=== PATIENT | male | born 1945 | race African-American/Black ===

== ENCOUNTER → 2018-12-10 | Outpatient (CLI) | payer MEDICARE, OTHER ==
[~2018-12-10] MED LIST: AMBIEN 10MG10 MG PO; ASPIRIN 32325 MG/TAB PO; ASPIRIN 81M81 MG/TA2 PO; EFFEXOR XR75 MG/CAP PO; GLUCOPHAGE1000 MG PO; K-DUR 2020 MEQ PO; LANTUS100 U/ML SC; LASIX 40MG TABL40 MG PO; LOPRESSOR100 MG PO; MINIPRESS 5M5 MG/CAP PO; MULTIPLE VITAMI1 CAP PO; NORVASC 10MG10 MG PO; NORVASC 5MG5 MG/TAB PO; NOVOLOG 100U100 U/M1 SC; PLAVIX 75MG TAB75 MG PO; PRAVACHOL 40MG40 MG PO; PROSCAR 5MG5 MG PO; VIAGRA100 MG; ZESTRIL40 MG PO
== END ==
LOC: COL.RAD 08:47
DX: K63.89 Other specified diseases of intestine (principal); K80.20 Calculus of gallbladder without cholecystitis without obstruction; D64.9 Anemia, unspecified; R19.5 Other fecal abnormalities

== ENCOUNTER 2021-02-13 14:25 | Emergency (ER) | payer OTHER ==
[~2021-02-13] VITALS: Ht 190.5 cm; Wt 141.4 kg
[2021-02-13 14:35] VITALS: TEMP 98.4
[2021-02-13 15:22] LABS: ALBUMIN 3.4 gm/dL (3.5-5.0); BILIRUBIN,TOTAL 0.2 mg/dL (0.0-1.0); C-REACTIVE PROTEIN 3.1 mg/dL (0.0-0.9); CALCIUM 8.9 mg/dL (8.4-10.2); CREATININE, serum 1.89 (0.66-1.25); TOTAL PROTEIN 7.2 gm/dL (6.4-8.2)
[2021-02-13 15:28] LABS: BASO # 0.1 (0.0-0.2); BASO % 0.6 % (0.0-2.0); EOS # 0.2 (0.0-0.7); EOS % 1.8 % (0-4.0); GRAN # 8.2 (1.4-6.5); GRAN % 74.9 % (42.2-75.2); LYMPH # 1.7 (1.2-3.4); LYMPH % 15.4 % (20.0-51.0); MEAN CELL VOLUME 79 fl (80.0-100.0); MEAN CORPUSCULAR HGB CONC 32 g/dl (33.0-37.0); MEAN PLATELET VOLUME 11.6 fl (7.4-10.4); MONO # 0.8 (0.1-0.6); MONO % 6.9 % (1.7-9.3); PLATELET COUNT 250 K/mm3 (130-400); RED BLOOD COUNT 3.82 M/mm3 (4.20-5.60)
[2021-02-13 15:31] LABS: HEMATOCRIT 30.2 % (42.0-52.0); HEMOGLOBIN 9.6 g/dl (13.5-18.0); MEAN CORPUSCULAR HEMOGLOBIN 25 pg (27.0-31.0)
[2021-02-13] MEDS ORDERED: CEPHALEXIN500 M1 PO (16:10)
[2021-02-13 16:28] VITALS: BP 134/65; PULSE 73
== END 2021-02-13 16:23 | disposition home or self-care (01) ==
LOC: COL.ER 14:25
PROVIDERS: Emergency Medicine
DX: Z48.89 Encounter for other specified surgical aftercare (principal); E11.9 Type 2 diabetes mellitus without complications; I10 Essential (primary) hypertension; E78.5 Hyperlipidemia, unspecified; Z98.890 Other specified postprocedural states; Z79.4 Long term (current) use of insulin; Z79.899 Other long term (current) drug therapy

== ENCOUNTER 2021-03-29 11:14 | Emergency (ER) | payer OTHER ==
[~2021-03-29] VITALS: Ht 193 cm; Wt 143.2 kg
[~2021-03-29 11:14] MED LIST changes: +CEPHALEXIN500 M1 PO
[2021-03-29] MEDS ORDERED: CEPHALEXIN500 M1 PO (12:30)
[2021-03-29 13:15] VITALS: BP 134/64; PULSE 82; TEMP 98.1
== END 2021-03-29 13:23 | disposition home or self-care (01) ==
LOC: COL.ER 11:14
DX: E11.621 Type 2 diabetes mellitus with foot ulcer (principal); L97.529 Non-pressure chronic ulcer of other part of left foot with unspecified severity; E11.40 Type 2 diabetes mellitus with diabetic neuropathy, unspecified; Z79.4 Long term (current) use of insulin

== ENCOUNTER → 2021-10-01 | Outpatient (CLI) | payer OTHER | LOC: COL.RAD 09-30 08:15 | DX: I12.9 Hypertensive chronic kidney disease with stage 1 through stage 4 chronic kidney disease, or unspecified chronic kidney disease (principal); N18.4 Chronic kidney disease, stage 4 (severe) ==